=== PATIENT | male | born 1970 | race Two or more races ===

== ENCOUNTER 2024-03-14 12:38 | Emergency (ER) | payer OTHER ==
[~2024-03-14] VITALS: Ht 167.6 cm; Wt 70.0 kg
[2024-03-14 12:42] VITALS: O2SAT 97
[2024-03-14] MEDS ORDERED: AMOX1TAB16 MT (15:59)
[2024-03-14] MEDS: AMOXICILLIN/POTASSIUM CLAVULANATE 875/125MG TAB PO ONE (16:35)
[2024-03-14 16:36] VITALS: BP 144/87; PULSE 98; RESP 16; TEMP 36.83628; O2SAT 97
== END 2024-03-14 16:23 | disposition home or self-care (01) ==
LOC: ER 12:38
DX: H05.012 Cellulitis of left orbit (principal); I10 Essential (primary) hypertension; Z98.890 Other specified postprocedural states
CPT/HCPCS: 70486; 99284